=== PATIENT | male | born 1965 | race Caucasian/White ===

== ENCOUNTER 2023-04-10 07:49 | Emergency (ER) | payer BC, SELFPAY ==
[2023-04-10 08:01] VITALS: BP 153/103; PULSE 91; RESP 18; TEMP 35.9; O2SAT 97; BMI 37.2
--- NOTE | 2023-04-10 08:17 | ED.GENADULT ---
HPI - General Adult General Chief complaint: Headache/Migraine Stated complaint: head pains Time Seen by Provider: 04/10/23 07:54 History of Present Illness HPI narrative: Patient is a pleasant 57-year-old healthy male who presents with some pressure behind his eyes, initially thought he had some sinus or allergy symptoms. He has developed some stiffness in his right side of his neck hurts when he rotates his neck to the left, little bit of pain that radiates for to the top of his scalp as well. No radicular symptoms, no fevers, chills, other symptoms, the patient has had COVID pretty significantly last year. He otherwise has been quite healthy. Not had headaches or neck pain in the past. Related Data Home Medications Medication Instructions Recorded Confirmed No Known Home Medications 04/10/23 04/10/23 Previous Rx's Medication Instructions Recorded celecoxib 200 mg capsule (Celebrex) 200 mg PO DAILY #14 caps 04/10/23 methylprednisolone 4 mg tablets in See Rx Instructions PO .COMPLEX 04/10/23 a dose pack (Medrol (Talha)) #21 ea Allergies Allergy/AdvReac Type Severity Reaction Status Date / Time bee venom protein (honey bee) Allergy Severe Anaphylaxis Verified 04/10/23 08:01 Penicillins Allergy Unknown Verified 04/10/23 08:01 Review of Systems Status of ROS: Reports: 6 or more systems reviewed and unremarkable except as noted in History and below PFSH [facility] Social History Smoking Status: Never smoker How often do you have a drink containing alcohol: monthly or less AUDIT-C Alcohol total score: 1 Non-prescribed substance use: denies use Exam Narrative: Exam Narrative: Objective: Patient's blood pressure is slightly elevated afebrile Neck shows limited range of motion to lateral bending and 2 rotation to the left, he has some mild cervical strap muscle tenderness on the right, no midline tenderness, normal flexion extension of the neck No radicular symptoms in the arms, normal strength in the arms and sensation No maxillary sinus tenderness, no facial asymmetry, pupils equal react to light extra movements intact Const: Vital Signs, click to edit/add: Vital Signs - 24 hr 04/10/23 08:01 Temperature 96.6 F L Pulse Rate [Pulse Oximeter] 91 Respiratory Rate 18 Blood Pressure [Ri ght Upper Arm] 153/103 H Pulse Oximetry 97 Oxygen Delivery Me thod Room Air Course Vital Signs Vital signs: Initial Vital Signs Temperature 96.6 F L 04/10/23 08:01 Temperature Source Temporal Artery Scan 04/10/23 08:01 Pulse Rate 91 04/10/23 08:01 Respiratory Rate 18 04/10/23 08:01 Blood Pressure 153/103 H 04/10/23 08:01 Blood Pressure Mean 119 H 04/10/23 08:01 Blood Pressure Position Sitting 04/10/23 08:01 Pulse Oximetry 97 04/10/23 08:01 Oxygen Delivery Method Room Air 04/10/23 08:01 Vital Signs Temperature 96.6 F L 04/10/23 08:01 Pulse Rate 91 04/10/23 08:01 Respiratory Rate 18 04/10/23 08:01 Blood Pressure 153/103 H 04/10/23 08:01 Pulse Oximetry 97 04/10/23 08:01 Oxygen Delivery Method Room Air 04/10/23 08:01 Temperature 96.6 F L 04/10/23 08:01 Pulse Rate 91 04/10/23 08:01 Respiratory Rate 18 04/10/23 08:01 Blood Pressure 153/103 H 04/10/23 08:01 Pulse Oximetry 97 04/10/23 08:01 Oxygen Delivery Method Room Air 04/10/23 08:01 Medical Decision Making MDM Narrative Medical decision making narrative: Patient has had some cervical strap muscle tenderness and with sounds like somewhat of a tension headache related. No trauma or injury. At this point I think a trial of a Medrol Dosepak would be helpful as well as Celebrex daily for 14 days. Would recommend follow up with his regular doctor in the next few days to determine if physical therapy or further imaging would be needed. He has had no significant trauma or injury. I think this will alleviate a lot of his symptoms. It seems clearly musculoskeletal with his limited range of motion and his tenderness along the cervical strap muscles. He has significant other comfortable plan Discharge Plan Discharge Clinical Impression: Cervical spine pain, Headache Patient Disposition: Home, Self-Care Condition: Stable Additional Instructions: Ice to the neck 10 minutes 2 times a day for the next several days, Celebrex and Medrol as prescribed, follow up with regular doctor in 4-5 days, consider physical therapy and further imaging if not improving. Activity Level: Light activity Discharge Diet: Regular Prescriptions: New methylprednisolone [Medrol (Talha)] 4 mg tablets,dose pack See Rx Instructions .ROUTE .COMPLEX Qty: 21 0RF Rx Instructions: orally per package directions celecoxib [Celebrex] 200 mg capsule 200 mg PO DAILY Qty: 14 2RF No Action No Known Home Medications Stand Alone Forms: [facility] Info Instructions
== END 2023-04-10 08:40 | disposition home or self-care (01) ==
PROVIDERS: Emergency Provider Family Medicine
DX: M54.2 Cervicalgia (principal); R51.9 Headache, unspecified
CPT/HCPCS: 99283

== ENCOUNTER 2024-07-24 08:30 | Outpatient (RCR) | payer OTHER, SELFPAY | END 2024-08-31 15:44 | disposition home or self-care (01) | PROVIDERS: Visit Provider Student in an Organized Health Care Education/Training Program | DX: M67.911 Unspecified disorder of synovium and tendon, right shoulder (principal); M67.912 Unspecified disorder of synovium and tendon, left shoulder; M25.511 Pain in right shoulder; M25.512 Pain in left shoulder; Z51.89 Encounter for other specified aftercare | CPT/HCPCS: 97110; 97112; 97140; 97161 ==